=== PATIENT | female | born 1985 | race Caucasian/White ===

== ENCOUNTER 2017-02-13 21:10 | Emergency (ER) | payer OTHER ==
[2017-02-13 21:17] VITALS: BP 123/82; PULSE 92; TEMP 98.7; BMI 32.9
--- NOTE | 2017-02-13 21:50 | PDOC ---
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 The patient reports she was cleaning when her symptoms began and describes it as discomfort in her central chest. She reports the symptoms to worsen when she coughs. She denies the symptoms worsening when she takes a deep breath. She reports to have been under significant stress the past few days. She denies any respiratory symptoms. She denies ever having a similar episode before. She denies the use of alcohol or recreational drugs. Patient is a nonsmoker. She denies recent fevers, chills, headache or dizziness. She denies recent nausea, vomit, diarrhea or constipation. She denies recent dysuria, frequency, urgency or hematuria. She denies recent chest pain or shortness of breath. PAST MEDICAL HISTORY: no significant history PAST SURGICAL HISTORY: no significant history FAMILY HISTORY: no pertinent history SOCIAL HISTORY: Pt lives with family and is employed. MEDICATIONS: reviewed ALLERGIES: As per nursing notes General: No fevers or chills, no weakness, no weight loss HEENT: No change in vision. No sore throat,. No ear pain CardioVascular: +Chest discomfort. +Shortness of breath. Respiratory:No cough, or wheezing. Gastrointestinal: no nausea, vomiting, diarrhea or constipation, No rectal bleeding Genitourinary: No dysuria, hematuria, or frequency Musculoskeletal: No joint or muscle pain or swelling Neurologic: No headache, vertigo, dizziness or loss of consciousness Psychiatric: nor depression Skin: No rashes or easy bruising Endocrine: no increased thirst or abnormal weight change Allergic: no skin or latex allergy All other systems reviewed and normal General: Well-nourished well-developed individual, no acute distress HEENT: Throat: Normal, tonsils normal, no erythema or exudate Neck: Supple, no meningeal signs, no lymphadenopathy Eyes::Pupils equal reactive and round, extraocular motion intact Chest: Pain is not reproduced on palpation. Cardiac: S1-S2 normal, regular rate and rhythm, no murmurs rubs or gallops Respiratory: Lungs clear to auscultation bilateral Abdomen: Soft, nondistended, normal bowel sounds, nontender to palpation diffusely Extremities: Warm, dry, no cyanosis, clubbing, or edema Skin: No rashes Neuro: Alert and oriented x3, nonfocal exam, grossly intact, normal gait Psych: Normal mood and affect (Vitor Copeland) 02/13/17 21:56 A portion of this note was documented by scribe services under my direction. I have reviewed the details of the note, within reason, and agree with the documentation. The case summary and management plan written by me. EKG shows normal sinus rhythm at a rate of [address] acute [address]-T wave changes. Assessment and plan: This is a 31-year-old female who comes in complaining of acute onset of shortness of breath associated with some some substernal anterior chest tightness/pressure. Patient said she's been under a lot of stress lately and I did a cardiogram that was completely normal patient has no cardiac risk factors and no family history. Patient reassured that this most likely is secondary to her stress and anxiety. Patient discharged home a prescription for a total of 3 tablets of Xanax was sent to the pharmacy and patient will follow-up with her primary care doctor after the holidays. 02/13/17 22:01 (Jannette Kenny I) Past History <Vitor Copeland - Last Filed: 02/13/17 21:51> - Past Medical History Asthma: No Cancer: No Cardiac Disorders: No COPD: No Diabetes: No HTN: No Seizures: No Thyroid Disease: No - Surgical History Abdominal Surgery: Yes - Suicide/Smoking/Psychosocial Hx Smoking Status: No Smoking History: Never smoked Have you smoked in the past 12 months: No Number of Cigarettes Smoked Daily: 0 Hx Alcohol Use: No Drug/Substance Use Hx: No Substance Use Type: None Hx Substance Use Treatment: No <Jannette Kenny I - Last Filed: 02/13/17 22:04> - Past Medical History Allergies/Adverse Reactions: Allergies Allergy/AdvReac Type Severity Reaction Status Date / Time No Known Allergies Allergy Verified 02/13/17 21:12 Home Medications: Ambulatory Orders NK [No Known Home Medication] 04/19/15 - Vital Signs Last Vital Signs Temp Pulse Resp BP Pulse Ox 98.7 F 92 H 18 123/82 100 02/13/17 21:12 02/13/17 21:12 02/13/17 21:12 02/13/17 21:12 02/13/17 21:17 *DC/Admit/Observation/Transfer <Vitor Copeland - Last Filed: 02/13/17 21:51> - Discharge Dispostion Admit: No <Jannette Kenny I - Last Filed: 02/13/17 22:04> Diagnosis at time of Disposition: Anxiety - Discharge Dispostion Disposition: HOME Condition at time of disposition: Good - Patient Instructions Additional Instructions: I sent a prescription to her pharmacy for 3 tablets of Xanax U can take one tonight when you get home. You can repeat as often as once a day. Follow-up with your primary care doctor after the holidays for a physical and complete evaluation. Return to the emergency department immediately with ANY new, persistent or worsening symptoms. Continue any medications as previously prescribed by your physician. You should follow up with your primary doctor as soon as possible regarding today's emergency department visit. . Please make sure your doctor reviews the results of your emergency evaluation. Thank you for coming to the Emergency Department today for your care. It was a pleasure to see you today. Please note that your evaluation is INCOMPLETE until you follow-up with your doctor. - Attestations Scribe Attestion: 02/13/17 21:52 Documentation prepared by Vitor Copeland, acting as biomedical engineering technologist for Jannette Kenny MD. (iVtor Copeland)
--- NOTE | 2017-02-19 17:40 | EKG ---
Test Reason : Blood Pressure : / mmHG Vent. Rate : 084 BPM Atrial Rate : 084 BPM P-R Int : 138 ms QRS Dur : 080 ms QT Int : 382 ms P-R-T Axes : 043 057 042 degrees QTc Int : 451 ms NORMAL SINUS RHYTHM NO PREVIOUS ECGS AVAILABLE Confirmed by MD ROCAEL, FARHEEN ([id number]) on 02/19/2017 4:26:27 PM Referred By: MD BOWENS Confirmed By:FARHEEN COTE MD
== END 2017-02-13 22:09 | disposition home or self-care (01) ==
LOC: FER 21:10
DX: F41.9 Anxiety disorder, unspecified (principal)
CPT/HCPCS: 93005; 99281-25